=== PATIENT | male | born 1970 | race Caucasian/White ===

== ENCOUNTER 2022-01-19 10:35 | Emergency (ER) | payer OTHER ==
[~2022-01-19] VITALS: Ht 180.3 cm; Wt 89.2 kg
[2022-01-19 10:50] VITALS: BP 148/111
[2022-01-19] MEDS ORDERED: KETOROLAC 15 MG/ML VIAL. IVP ONE (11:00)
[2022-01-19] MEDS ORDERED: ORPHENADRINE CITRATE 60 MG/2 ML VIAL. IM ONE (11:00)
[2022-01-19] MEDS ORDERED: IV NORMAL SALINE 1,000ML 1,000 ML IV SCH (11:00)
--- NOTE | 2022-01-19 11:05 | EKG ---
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
--- NOTE | 2022-01-19 11:25 | RAD ---
EXAM: Chest, single view. HISTORY: Pain. COMPARISON: None. FINDINGS: A frontal view of the chest is obtained. There is no infiltrate, pleural effusion or pneumo thorax. The heart is normal in size. IMPRESSION: No acute pulmonary finding. Electronically signed by: Lilia Parker MD (01/19/2022 11:23 AM) [facility]
[2022-01-19 11:28] LABS: BASO % 1 % (0-3); CALCIUM 9.2 mg/dL (8.5-10.1); EOS # 0.2 x10^3/uL (0.0-0.7); EOS % 3 % (0-3); GFR 78.5; HEMATOCRIT 44.5 % (39.0-53.0); HEMOGLOBIN 14.9 g/dL (13.0-17.5); LYMPH # 1.9 x10^3/uL (1.0-4.8); LYMPH % 34 % (24-48); MEAN CORPUSCULAR HEMOGLOBIN 30 pg (25-35); MEAN CORPUSCULAR HGB CONC 33 g/dL (31-37); MEAN CORPUSCULAR VOLUME 90 fL (79-100); MONO # 0.4 x10^3/uL (0.0-1.1); MONO % 8 % (0-9); NEUT % 54 % (31-73); PLATELET COUNT 345 x10^3/uL (140-400); POTASSIUM 4.3 mmol/L (3.5-5.1); RED BLOOD COUNT 4.94 x10^6/uL (4.30-5.70); RED CELL DISTRIBUTION WIDTH 13.4 % (11.5-14.5); WHITE BLOOD COUNT 5.5 x10^3/uL (4.0-11.0)
[2022-01-19 11:35] LABS: ALBUMIN 3.7 g/dL (3.4-5.0); TOTAL BILIRUBIN 0.5 mg/dL (0.2-1.0); TOTAL PROTEIN 7.3 g/dL (6.4-8.2)
--- NOTE | 2022-01-19 11:37 | PHYS DOC ---
Past History Past Surgical History: No Surgical History (BECKIE CLARKE APRN) Alcohol Use: None (BECKIE CLARKE APRN) General Adult EDM: Chief Complaint: UPPER EXTREMITY PAIN HPI: HPI: Patient is a 51-year-old male who presents to the emergency department for left arm pain that originates along his scapula and radiates down his arm with intermittent hand tingling. Patient rates pain 2 out of 10. He denies any injuries. Pain is not worse with movement. No treatment prior to arrival. Patient has elevated blood pressure with 148/111. He reports that he does not have a history of hypertension but does have a history of hyperlipidemia. Patient denies chest pain, shortness of breath, nausea, vomiting, dizziness. (BECKIE CLARKE APRN) Review of Systems: Review of Systems: Constitutional: negative unless reported in HPI Eyes: negative unless reported in HPI HENT: negative unless reported in HPI Respiratory: negative unless reported in HPI Cardiovascular: negative unless reported in HPI GI: negative unless reported in HPI : negative unless reported in HPI Musculoskeletal: negative unless reported in HPI Integument: negative unless reported in HPI Neurologic: negative unless reported in HPI Endocrine: negative unless reported in HPI Lymphatic: negative unless reported in HPI Psychiatric: negative unless reported in HPI (BECKIE CLARKE APRN) Current Medications: Current Meds: Current Medications Medications (Trade) Dose Ordered Sig/Lobito Start Time Stop Time Status Last Admin Dose Admin Ketorolac Tromethamine (Toradol 15mg Vial) 15 mg 1X ONCE 01/19/22 11:00 01/19/22 11:01 DC Orphenadrine Citrate (Norflex) 60 mg 1X ONCE 01/19/22 11:00 01/19/22 11:01 DC Sodium Chloride 1,000 ml @ 1,000 mls/hr Q1H 01/19/22 11:00 01/19/22 11:59 (BECKIE CLARKE APRN) Allergies: Allergies: Allergies Coded Allergies Type Severity Reaction Last Updated Verified No Known Drug Allergies 01/19/22 No (BECKIE CLARKE APRN) Physical Exam: PE: Constitutional: Well developed, well nourished, no acute distress, non-toxic appearance. [] HENT: Normocephalic, atraumatic, bilateral external ears normal, oropharynx moist, no oral exudates, nose normal. [] Eyes: PERRL, EOMI, conjunctiva normal, no discharge. [] Neck: Normal range of motion, no tenderness, supple, no stridor, muscle spasm to left trapezius. [] Cardiovascular:Heart rate regular rhythm, no murmur [] Lungs & Thorax: Bilateral breath sounds clear to auscultation [] Abdomen: Bowel sounds normal, soft, no tenderness, no masses, no pulsatile masses. [] Skin: Warm, dry, no erythema, no rash. [] Back: Normal range of motion Extremities: No tenderness, no cyanosis, no clubbing, ROM intact, no edema. [] Neurologic: Alert and oriented X 3, normal motor function, normal sensory function, no focal deficits noted. [] Psychologic: Affect normal, judgement normal, mood normal. [] (BECKIE CLARKE APRN) Current Patient Data: Labs: Laboratory Tests Test 01/19/22 11:04 White Blood Count 5.5 x10^3/uL Red Blood Count 4.94 x10^6/uL Hemoglobin 14.9 g/dL Hematocrit 44.5 % Mean Corpuscular Volume 90 fL Mean Corpuscular Hemoglobin 30 pg Mean Corpuscular Hemoglobin Concent 33 g/dL Red Cell Distribution Width 13.4 % Platelet Count 345 x10^3/uL Neutrophils (%) (Auto) 54 % Lymphocytes (%) (Auto) 34 % Monocytes (%) (Auto) 8 % Eosinophils (%) (Auto) 3 % Basophils (%) (Auto) 1 % Neutrophils # (Auto) 3.0 x10^3uL Lymphocytes # (Auto) 1.9 x10^3/uL Monocytes # (Auto) 0.4 x10^3/uL Eosinophils # (Auto) 0.2 x10^3/uL Basophils # (Auto) 0.0 x10^3/uL Sodium Level 142 mmol/L Potassium Level 4.3 mmol/L Chloride Level 104 mmol/L Carbon Dioxide Level 27 mmol/L Anion Gap 11 Blood Urea Nitrogen 14 mg/dL Creatinine 1.0 mg/dL Estimated GFR (Cockcroft-Gault) 78.5 BUN/Creatinine Ratio 14 Glucose Level 104 mg/dL Calcium Level 9.2 mg/dL Total Bilirubin 0.5 mg/dL Aspartate Amino Transf (AST/SGOT) 23 U/L Alanine Aminotransferase (ALT/SGPT) 38 U/L Alkaline Phosphatase 75 U/L Troponin I High Sensitivity 12 ng/L Total Protein 7.3 g/dL Albumin 3.7 g/dL Albumin/Globulin Ratio 1.0 Current Medications Medications (Trade) Dose Ordered Sig/Lobito Route PRN Reason Start Time Stop Time Status Last Admin Dose Admin Sodium Chloride 1,000 ml @ 1,000 mls/hr Q1H IV 01/19/22 11:00 01/19/22 11:59 01/19/22 11:00 Ketorolac Tromethamine (Toradol 15mg Vial) 15 mg 1X ONCE IVP 01/19/22 11:00 01/19/22 11:01 DC 01/19/22 11:00 Orphenadrine Citrate (Norflex) 60 mg 1X ONCE IM 01/19/22 11:00 01/19/22 11:01 DC 01/19/22 11:00 Laboratory Tests Test 01/19/22 11:04 White Blood Count 5.5 x10^3/uL (4.0-11.0) Red Blood Count 4.94 x10^6/uL (4.30-5.70) Hemoglobin 14.9 g/dL (13.0-17.5) Hematocrit 44.5 % (39.0-53.0) Mean Corpuscular Volume 90 fL (79-100) Mean Corpuscular Hemoglobin 30 pg (25-35) Mean Corpuscular Hemoglobin Concent 33 g/dL (31-37) Red Cell Distribution Width 13.4 % (11.5-14.5) Platelet Count 345 x10^3/uL (140-400) Neutrophils (%) (Auto) 54 % (31-73) Lymphocytes (%) (Auto) 34 % (24-48) Monocytes (%) (Auto) 8 % (0-9) Eosinophils (%) (Auto) 3 % (0-3) Basophils (%) (Auto) 1 % (0-3) Neutrophils # (Auto) 3.0 x10^3uL (1.8-7.7) Lymphocytes # (Auto) 1.9 x10^3/uL (1.0-4.8) Monocytes # (Auto) 0.4 x10^3/uL (0.0-1.1) Eosinophils # (Auto) 0.2 x10^3/uL (0.0-0.7) Basophils # (Auto) 0.0 x10^3/uL (0.0-0.2) Sodium Level 142 mmol/L (136-145) Potassium Level 4.3 mmol/L (3.5-5.1) Chloride Level 104 mmol/L (98-107) Carbon Dioxide Level 27 mmol/L (21-32) Anion Gap 11 (6-14) Blood Urea Nitrogen 14 mg/dL (8-26) Creatinine 1.0 mg/dL (0.7-1.3) Estimated GFR (Cockcroft-Gault) 78.5 BUN/Creatinine Ratio 14 (6-20) Glucose Level 104 mg/dL (70-99) H Calcium Level 9.2 mg/dL (8.5-10.1) Total Bilirubin Pending Aspartate Amino Transferase (AST) Pending Alanine Aminotransferase (ALT) Pending Alkaline Phosphatase Pending Total Protein Pending Albumin Pending Albumin/Globulin Ratio Pending Vital Signs: Vital Signs Date Time Temp Pulse Resp B/P (MAP) Pulse Ox O2 Delivery O2 Flow Rate FiO2 01/19/22 10:50 74 18 148/111 (123) 96 (BECKIE CLARKE APRN) EKG: EKG: EKG performed by ER staff at 1101 shows sinus rhythm with a rate of 63, QTC of 340, no STEMI read by Dr. Herrera at 1103 [] (BECKIE CLARKE APRN) Radiology/Procedures: Radiology/Procedures: []PROCEDURE: PORTABLE CHEST 1V EXAM: Chest, single view. HISTORY: Pain. COMPARISON: None. FINDINGS: A frontal view of the chest is obtained. There is no infiltrate, pleural effusion or pneumothorax. The heart is normal in size. IMPRESSION: No acute pulmonary finding. Electronically signed by: Lilia López MD (01/19/2022 11:23 AM) [facility] DICTATED AND SIGNED BY: LILIA LÓPEZ MD DATE: 01/19/22 112 CC: BECKIE CLARKE APRN; PCP,UNKNOWN ~MTH0 0 (BECKIE CLARKE APRN) Heart Score: C/O Chest Pain: No Risk Factors: Risk Factors: DM, Current or recent (<one month) smoker, HTN, HLP, family history of CAD, obesity. Risk Scores: Score 0 - 3: 2.5% MACE over next 6 weeks - Discharge Home Score 4 - 6: 20.3% MACE over next 6 weeks - Admit for Clinical Observation Score 7 - 10: 72.7% MACE over next 6 weeks - Early Invasive Strategies (BECKIE CLARKE APRN) Course & Med Decision Making: Course & Med Decision Making Pertinent Labs and Imaging studies reviewed. (See chart for details) [] Patient presents to the emergency department for left arm pain with intermittent tingling in his hands. Patient does have an elevated blood pressure but does not have a history of hypertension. Patient denies any chest pain, shortness of breath, dizziness, nausea, vomiting. Work-up in the ER consisted of blood work, EKG, chest x-ray to rule out any cardiac cause for his arm pain and tingling. Patient will be treated with anti-inflammatory medication and muscle relaxer. Chest x-ray unremarkable. CBC and CMP unremarkable. Patient does not have elevated troponin. EKG shows sinus rhythm. Patient reports resolution in his pain after treatment with Toradol and orphenadrine. Patient will be advised to take anti-inflammatory medications and discharged home with Flexeril. His blood pressure has improved but is still mildly elevated in the emergency department with a blood pressure of 150s over 90s. Patient is advised to follow-up with his primary care provider regarding his elevated blood pressure readings in the emergency department. He continues to be asymptomatic denying chest pain, shortness of breath, dizziness, nausea, vomiting. I discussed with patient all findings and diagnostic testing as well as the need to follow-up with PCP for further evaluation and treatment or return to the ER if any new or worsening symptoms. Strict return precautions were also discussed at length. Patient voiced understanding and agreement with the plan. Patient is hemodynamically stable at the time of disposition. (BECKIE CLARKE APRN) Course & Med Decision Making I was the Attending physician on the above date of service of this patient. This patient was evaluated, examined, treated, and dispositioned from the emergency department by the mid-level practitioner. Although I was working at the time , no assistance was requested. Electronically signed, Nick Herrera DO (NICK HERRERA DO) Guillermo Disclaimer: Guillermo Disclaimer: This electronic medical record was generated, in whole or in part, using a voice recognition dictation system. (BECKIE CLARKE APRN) Departure Departure: Impression: Primary Impression: Radiculopathy affecting upper extremity Disposition: HOME / SELF CARE / HOMELESS Condition: GOOD Referrals: PCP,UNKNOWN (PCP) Patient Instructions: Radicular Pain Additional Instructions: You were seen in the emergency department today for left arm pain that radiates down your arm with tingling. Your blood work, EKG and chest x-ray were unremarkable. It is likely that you are experiencing a muscle spasm with radiculopathy. This is treated with anti-inflammatory medications like ibuprofen or naproxen and muscle relaxers. You are being discharged home with a muscle relaxer. This medication may cause sedation so do not take when you need to be alert, driving a vehicle or with alcohol. Your blood pressure was elevated in the emergency department today. Please follow-up with your primary care provider on Thursday regarding this. As we discussed, you may need to purchase a blood pressure cuff and monitor your blood pressure at home twice a day and keep a log. Return to the emergency department if you develop worsening of your pain, increased numbness or tingling, unilateral weakness, chest pain, shortness of breath, dizziness, intractable nausea or vomiting or any new or worsening concerns. Scripts Cyclobenzaprine Hcl (CYCLOBENZAPRINE HCL) 5 Mg Tablet 1 TAB PO TID for muscle spasm for 7 Days, #21 TAB 0 Refills Prov: BECKIE CLARKE APRN 01/19/22 BECKIE CLARKE APRN Jan 19, 2022 11:37 NICK HERRERA DO Jan 22, 2022 07:22
[2022-01-19] MEDS ORDERED: CYCL5TAB PO (11:53)
== END 2022-01-19 12:02 | disposition home or self-care (01) ==
LOC: ER 10:35
DX: M54.10 Radiculopathy, site unspecified (principal); E78.5 Hyperlipidemia, unspecified
CPT/HCPCS: 36415; 71045; 80053; 84484; 85025; 93005; 96361; 96372; 96374; 99285; J1885; J2360; J7030